=== PATIENT | female | born 2000 | race Hispanic/Latino ===

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

== ENCOUNTER 2021-01-20 21:59 | Emergency (ER) | payer OTHER, SELFPAY ==
--- NOTE | 2021-01-20 23:26 | EDPHYS ---
Physician Documentation [facility] Name: Edis Ford Age: 20 yrs Sex: Female : 2000 Arrival Date: 01/20/2021 Time: 22:03 Bed 19 Private MD: ED Physician Too Reese HPI: 01/20 22:14 This 20 yrs old Female presents to ER via Unassigned with complaints of Ankle kb Pain. 22:14 The patient presents with pain. The complaints affect the right ankle. Onset: The kb symptoms/episode began/occurred 2 day(s) ago. Context: The problem was sustained at home, resulted from an unknown cause, The patient can fully bear weight on the affected extremity. the patient is able to ambulate. Associated signs and symptoms: Pertinent positives: swelling, Pertinent negatives: calf tenderness, fever, nausea, numbness, rash, tingling, vomiting, warmth, weakness. Modifying factors: The symptoms are alleviated by nothing, the symptoms are aggravated by nothing. Severity of symptoms: At their worst the symptoms were mild, in the emergency department the symptoms are unchanged. The patient has not experienced similar symptoms in the past. The patient has not recently seen a physician. Pt reports medial right ankle pain that started 2 days ago. Cause is unknown, but pt has been doing a lot of workouts and jumping rope. 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 - Social history:: Smoking status: Patient denies any tobacco usage or history of. ROS: 22:14 Constitutional: Negative for fever, chills, and weight loss, Skin: Negative for injury, kb rash, and discoloration, Neuro: Negative for headache, weakness, numbness, tingling, and seizure. 22:14 MS/extremity: Positive for pain, swelling, of the right ankle. Exam: 22:14 Constitutional: This is a well developed, well nourished patient who is awake, alert, kb and in no acute distress. Head/Face: Normocephalic, atraumatic. ENT: Moist Mucous membranes Respiratory: Respirations even and unlabored. No increased work of breathing, no retractions or nasal flaring. Skin: Warm, dry with normal turgor. Normal color. Neuro: Awake and alert, GCS 15, oriented to person, place, time, and situation. Moves all extremities. Normal gait. Psych: Awake, alert, with orientation to person, place and time. Behavior, mood, and affect are within normal limits. 22:15 Musculoskeletal/extremity: Extremities: grossly normal except: noted in the right kb ankle: pain, swelling, ROM: intact in all extremities, Circulation is intact in all extremities. Sensation intact. Weight bearing: able to fully bear weight. Vital Signs: 22:12 BP 141 / 91; Pulse 75; Resp 16 S; Temp 97.2(TE); Pulse Ox 99% on R/A; Weight 76.2 kg ca1 (R); Height 5 ft. 2 in. (157.48 cm) (R); Pain 6/10; 23:10 BP 128 / 73; Pulse 70; Pulse Ox 97% on R/A; ap3 22:12 Body Mass Index 30.73 (76.20 kg, 157.48 cm) ca1 MDM: 22:07 Patient medically screened. kb 22:14 Data reviewed: vital signs, nurses notes. Data interpreted: Pulse oximetry: on room air kb is 100 %. Interpretation: normal. 23:25 Counseling: I had a detailed discussion with the patient and/or guardian regarding: the kb historical points, exam findings, and any diagnostic results supporting the discharge/admit diagnosis, radiology results, the need for outpatient follow up, a orthopedic surgeon, to return to the emergency department if symptoms worsen or persist or if there are any questions or concerns that arise at home. 01/20 22:10 Order name: Ankle Right 3 View XRAY kb Administered Medications: No medications were administered Disposition: 01/21 02:53 Co-signature as Attending Physician, Too Reese MD. [email or web address] Disposition: 01/20/21 23:25 Discharged to Home. Impression: Pain in right ankle and joints of right foot. - Condition is Stable. - Discharge Instructions: Ankle Sprain, [id number]. - Medication Reconciliation Form, Thank You Letter, Antibiotic Education, Prescription Opioid Use form. - Follow up: Emergency Department; When: As needed; Reason: Worsening of condition. Follow up: Private Physician; When: 2 - 3 days; Reason: Recheck today's complaints, Continuance of care, Re-evaluation by your physician. Signatures: Dispatcher [employer] EDSuzanne Brown, UNDERGROUND MINE SUPERINTENDENT-C UNDERGROUND MINE SUPERINTENDENT-Elsy Gomez, RN RN ap3 Regine Anderson RN RN ca1 Too Reese MD MD 7 Corrections: (The following items were deleted from the chart) 01/20 22:16 22:14 Constitutional: This is a well developed, well nourished patient who is awake, kb alert, and in no acute distress. Head/Face: Normocephalic, atraumatic. ENT: Moist Mucous membranes Respiratory: Respirations even and unlabored. No increased work of breathing, no retractions or nasal flaring. Skin: Warm, dry with normal turgor. Normal color. MS/ Extremity: Pulses equal, no cyanosis. Neurovascular intact. Full, normal range of motion. Neuro: Awake and alert, GCS 15, oriented to person, place, time, and situation. Moves all extremities. Normal gait. Psych: Awake, alert, with orientation to person, place and time. Behavior, mood, and affect are within normal limits. kb 23:32 23:25 01/20/2021 23:25 Discharged to Home. Impression: Pain in right ankle and joints ap3 of right foot. Condition is Stable. Forms are Medication Reconciliation Form, Thank You Letter, Antibiotic Education, Prescription Opioid Use. Follow up: Emergency Department; When: As needed; Reason: Worsening of condition. Follow up: Private Physician; When: 2 - 3 days; Reason: Recheck today's complaints, Continuance of care, Re-evaluation by your physician. kb
--- NOTE | 2021-01-20 23:26 | ER ---
Nurse's Notes [facility] Name: Edis Ford Age: 20 yrs Sex: Female : 2000 Arrival Date: 01/20/2021 Time: 22:03 Bed 19 Private MD: Diagnosis: Pain in right ankle and joints of right foot Presentation: 01/20 22:12 Chief complaint: Patient states: R ankle pain and swelling. Denies injury. Coronavirus ca1 screen: Client denies travel out of the [place] in the last 14 days. At this time, the client does not indicate any symptoms associated with coronavirus-19. Ebola Screen: Patient negative for fever greater than or equal to 101.5 degrees Fahrenheit, and additional compatible Ebola Virus Disease symptoms Patient denies exposure to infectious person. Patient denies travel to an Ebola-affected area in the 21 days before illness onset. No symptoms or risks identified at this time. Initial Sepsis Screen: Does the patient meet any 2 criteria? No. Patient's initial sepsis screen is negative. Does the patient have a suspected source of infection? No. Patient's initial sepsis screen is negative. Risk Assessment: Do you want to hurt yourself or someone else? Patient reports no desire to harm self or others. Onset of symptoms was January 20, 2021. 22:12 Method Of Arrival: Ambulatory ca1 22:12 Acuity: LACIE 4 ca1 22:14 Risk Assessment: Do you want to hurt yourself or someone else? Patient reports no ap3 desire to harm self or others. 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 - Social history:: Smoking status: Patient denies any tobacco usage or history of. Screenin:13 Abuse screen: Denies threats or abuse. Nutritional screening: No deficits noted. ap3 Tuberculosis screening: No symptoms or risk factors identified. Fall Risk None identified. Assessment: 22:11 General: Appears in no apparent distress. comfortable, Behavior is calm, cooperative, ap3 appropriate for age. Pain: Complains of pain in right ankle Pain does not radiate. Pain currently is 6 out of 10 on a pain scale. Pain began 2-3 days ago. Neuro: Level of Consciousness is awake, alert, obeys commands, Oriented to person, place, time, situation, Appropriate for age. Cardiovascular: Capillary refill < 3 seconds. Respiratory: Airway is patent Respiratory effort is even, unlabored, Respiratory pattern is regular, symmetrical. GI: No signs and/or symptoms were reported involving the gastrointestinal system. : No signs and/or symptoms were reported regarding the genitourinary system. EENT: No signs and/or symptoms were reported regarding the EENT system. Derm: No signs and/or symptoms reported regarding the dermatologic system. Musculoskeletal: Swelling present in right ankle. Vital Signs: 22:12 BP 141 / 91; Pulse 75; Resp 16 S; Temp 97.2(TE); Pulse Ox 99% on R/A; Weight 76.2 kg ca1 (R); Height 5 ft. 2 in. (157.48 cm) (R); Pain 6/10; 23:10 BP 128 / 73; Pulse 70; Pulse Ox 97% on R/A; ap3 22:12 Body Mass Index 30.73 (76.20 kg, 157.48 cm) ca1 ED Course: 22:03 Patient arrived in ED. bp1 22:07 Suzanne Hall FNP-C [facility]. kb 22:07 Too Reese MD is Attending Physician. kb 22:09 Elsy Gonzalez, RN is Primary Nurse. ap3 22:14 Patient has correct armband on for positive identification. Bed in low position. Call ap3 light in reach. Side rails up X 1. Adult w/ patient. Pulse ox on. NIBP on. Door closed. Noise minimized. 22:15 Triage completed. ca1 22:16 Arm band placed on right wrist. ca1 23:26 No provider procedures requiring assistance completed. Patient did not have IV access ap3 during this emergency room visit. Administered Medications: No medications were administered Outcome: 23:25 Discharge ordered by . kb 23:31 Discharged to home ambulatory, with significant other. ap3 23:31 Condition: good 23:31 Discharge instructions given to patient, Instructed on discharge instructions, follow up and referral plans. Demonstrated understanding of instructions, follow-up care. 23:32 Patient left the ED. ap3 Signatures: Suzanne Hall, Elsy Corona RN RN ap3 Regine Anderson RN RN ca1 Dacia Velasquez [facility]
[2021-01-20 23:38] VITALS: TEMP 97.2
[2021-01-20 23:40] VITALS: BP 128/73; O2SAT 97
--- NOTE | 2021-01-21 08:20 | RAD REPORT ---
EXAM DESCRIPTION: RAD - Ankle Right 3 View - 01/20/2021 10:32 pm CLINICAL HISTORY: PAIN COMPARISON: No comparisons FINDINGS: Moderate soft tissue swelling is seen about the ankle. No acute fracture or dislocation se en.
== END 2021-01-20 23:32 | disposition home or self-care (01) ==
LOC: ER 21:59
DX: M25.571 Pain in right ankle and joints of right foot (principal); I10 Essential (primary) hypertension
CPT/HCPCS: 99283